=== PATIENT | male | born 1945 ===

== ENCOUNTER → 2023-06-26 | Outpatient (CLI) | payer MEDICARE, BC ==
[2023-06-26 11:49] LABS: African American GFR (CKD) 73 (>60 ml/min/1.73 sqM); Blood Urea Nitrogen 23 mg/dL (9-20); Non-African American GFR(CKD) 63 (>60 ml/min/1.73 sqM)
--- NOTE | 2023-06-26 12:43 | CT ---
EXAMINATION TYPE: CT iac w con DATE OF EXAM: 06/26/2023 COMPARISON: None HISTORY: Pulsative tinnitus RT ear CT DLP: 328 mGycm Automated exposure control for dose reduction was used. CONTRAST: CT scan of the IACs is performed with IV Contrast, patient injected with 100 mL of Isovue 300. FINDINGS: The external auditory canals are patent bilaterally. Mastoid air cells show no evidence of abnormal opacification bilaterally. The middle ear ossicles are symmetric and unremarkable. There is no evidence of suspicious surrounding soft tissue density to suggest cholesteatoma. The scutum is preserved bilaterally. The cochlea and the semicircular canals are symmetric and unremarkable. Ves tibular aqueduct and internal carotid canal appear unremarkable. Temporomandibular joints are mainta ined bilaterally. There is no high riding jugular bulb or sigmoid plate dehiscence. There is no aberrant internal carot id artery or aneurysm. There is no paraganglioma. IMPRESSION: No significant abnormality seen to account for patient's symptoms.
--- NOTE | 2023-06-27 09:26 | US ---
EXAMINATION TYPE: US carotid duplex BILAT DATE OF EXAM: 06/26/2023 COMPARISON: NONE CLINICAL INDICATION: Male, 78 years old with history of H93.A1 PULSATILE TINNITUS, RIGHT EAR; HTN- on meds. TECHNIQUE: Carotid duplex ultrasound examination. Indirect Doppler criteria was utilized. FINDINGS: EXAM MEASUREMENTS: RIGHT: Peak Systolic Velocity (PSV) cm/sec ----- Right CCA: 79.7 ----- Right ICA: 127.0 ----- Right ECA: 154.9 ICA/CCA ratio: 1.6 RIGHT: End Diastole cm/sec ----- Right CCA: 16.3 ----- Right ICA: 28.4 ----- Right ECA: 9.1 LEFT: Peak Systolic Velocity (PSV) cm/sec ----- Left CCA: 83.1 ----- Left ICA: 117.3 ----- Left ECA: 117.3 ICA/CCA ratio: 1.4 LEFT: End Diastole cm/sec ----- Left CCA: 17.1 ----- Left ICA: 36.5 ----- Left ECA: 7.4 VERTEBRALS (direction of flow): Right Vertebral: Antegrade Left Vertebral: Antegrade Rhythm: Normal SEISMOGRAPH CHIEF NOTES: Plaque seen bilateral bulbs. Elevated right ECA velocity. Bilateral elevated pro ximal CCA velocities. Impression: 1. Moderate scattered heterogeneous plaque of the carotid bifurcations bilaterally. 2. Based on peak systolic velocities and ratios, there is less than 50% carotid stenosis. Criteria for Assigning % of Stenosis / Diameter reduction (Estimation based on the indirect measurements of the internal carotid artery velocities (ICA PSV). 1. Normal (no stenosis)=ICA PSV < 125 cm/s: ratio < 2.0: ICA EDV<40 cm/s. 2. Less than 50% stenosis=ICA PSV < 125 cm/s: ratio < 2.0: ICA EDV<40 cm/s. 3. 50 to 69% stenosis=ICA PSV of 125 to 230 cm/s: ration 2.0 ? 4.0: ICA EDV 40-100 cm/s. 4. Greater than 70% stenosis to near occlusion= ICA PSV > 230 cm/s: ratio > 4.0: ICA EDV > 100 cm/s. 5. Near occlusion= ICA PSV velocities may be low or undetectable: variable ratio and ICA EDV. 6. Total occlusion=unable to detect flow.
== END | disposition home or self-care (01) ==
LOC: RADUSWWP 09:47
PROVIDERS: ATTEND Otolaryngology
DX: Z13.9 Encounter for screening, unspecified (principal); H93.A1 Pulsatile tinnitus, right ear
CPT/HCPCS: 82565; 84520; 93880; 70481; 36415; Q9967